=== PATIENT | male | born 1960 | race Caucasian/White ===

== ENCOUNTER 2021-08-31 12:00 | Outpatient (REF) | payer BC, SELFPAY ==
[2021-09-01 14:21] LABS: COVID-19 RT-PCR UVMMC Result Negative (Negative)
== END 2021-08-31 12:01 | disposition home or self-care (01) ==
LOC: NCHCN 12:00
PROVIDERS: Visit Provider Physician Assistant Medical
DX: Z20.822 Contact with and (suspected) exposure to COVID-19 (principal)
CPT/HCPCS: U0003